=== PATIENT | male | born 1970 | race Hispanic/Latino ===

== ENCOUNTER 2018-02-15 23:42 | Emergency (ER) | payer OTHER ==
[~2018-02-15] VITALS: Ht 172.7 cm; Wt 122.5 kg
[2018-02-16] MEDS ORDERED: FAMOTIDINE 20 MG/2 ML VIAL IV STA (00:08)
[2018-02-16] MEDS ORDERED: DIPHENHYDRAMINE HCL INJ 50 MG/ML VIAL IV ONE (00:15)
[2018-02-16] MEDS ORDERED: METHYLPREDNISOLONE SOD SUCC 125 MG/2ML VIAL IV ONE (00:15)
[2018-02-16] MEDS ORDERED: DIPHENHYDRAMINE HCL INJ 50 MG/ML VIAL ONE (00:15)
[2018-02-16] MEDS ORDERED: METHYLPREDNISOLONE SOD SUCC 125 MG/2ML VIAL ONE (00:15)
[2018-02-16] MEDS ORDERED: FAMOTIDINE 20 MG/2 ML VIAL IV ONE (00:15)
[2018-02-16 00:40] VITALS: BP 141/75
== END 2018-02-16 01:35 | disposition home or self-care (01) ==
LOC: ER 23:49
DX: R60.9 Edema, unspecified (principal); T78.3XXA Angioneurotic edema, initial encounter; I10 Essential (primary) hypertension; E11.9 Type 2 diabetes mellitus without complications; E03.9 Hypothyroidism, unspecified
CPT/HCPCS: 99283; J1200; J2930

== ENCOUNTER 2018-02-25 21:12 | Emergency (ER) | payer OTHER ==
[~2018-02-25] VITALS: Ht 172.7 cm; Wt 122.5 kg
--- OUTSIDE RECORDS SUMMARY | 2018-02-25 21:14 | XMS REPORT | Continuity of Care Document ---
Author Author [facility] Organization [facility] Address [address] [place] [address] Phone Unavailable Care Team Providers Care In House Cra Name Role Phone JOAN VALDOVINOS (NONSTAFF) DO PCP Insurance Providers Guarantor SarahMary AnneEdwin Address [address] [place] [address] Email [email or web address] Payer [facility] Policy Number [id number] Subscriber's Name Edwin Boyd Relationship 18 Self / Same As Patient Group Number [id number] Advance Directives Directive Response Recorded Date/Time Does the patient have an advance directive? No 02/16/18 12:27am If yes, is advance directive on file with [facility]? No 02/16/18 12:27am If not on file with [facility] will patient provide a copy? Yes 02/16/18 12:27am Do you have a Directive to Physician? No 02/16/18 12:27am Do you have a Medical Power of Gas Usage Meter Clerk? No 02/16/18 12:27am Do you have an out of hospital Do Not Resuscitate Order? No 02/16/18 12:27am Do you have any special needs we should be aware of? No 02/16/18 12:27am Do you have a support person here with you today? Yes 02/16/18 12:27am Did patient receive Notice of Privacy Practices? Yes 02/16/18 12:27am Did patient receive patient rights and responsibilities? Yes 02/16/18 12:27am Problems No problem information available. Medications No medication information available. Social History Smoking Status Start Date Stop Date Never Smoker Hospital Discharge Instructions No hospital discharge instruction information available. Plan of Care Discharge Date 02/16/18 1:35am Disposition HOME, SELF-CARE Condition at Discharge Stable Instructions/Education Provided Angioedema Forms Provided Work/School Excuse Prescriptions See Medication Section Additional Instructions/Education STOP TAKING ENALAPRIL FOLLOW UP WITH PRIMARY CARE PHYSICIAN THIS WEEK Functional Status No functional status information available. Allergies, Adverse Reactions, Alerts Allergen Type Severity Reaction Status Last Updated Enalapril Allergy Severe Active 02/16/18 Immunizations No immunization information available. Vital Signs Acute Vital Signs Vital Response Date/Time Temperature (Fahrenheit) 97.8 degrees F (97.6 - 99.5) 02/16/2018 12:40am Pulse Pulse Rate (adult) 79 bpm (60 - 90) 02/16/2018 12:40am Respiratory Rate 17 bpm (12 - 24) 02/16/2018 12:40am Blood Pressure 141/75 mm Hg 02/16/2018 12:40am Height 5 ft 8 in 02/16/2018 12:00am Weight 270 lb 02/16/2018 12:00am Body Mass Index 41.1 kg/m^2 02/16/2018 12:00am Results No relevant diagnostic test, laboratory data and/or discharge summary information available. Procedures No procedure information available. Encounters Encounter Location Arrival/Admit Date Discharge/Depart Date Attending Provider Departed Emergency Room [facility] 02/15/18 11:49pm 02/16 1:35am LEANDRO GALVAN MD
[2018-02-25] MEDS ORDERED: ACETAMINOPHEN 325 MG TAB ONE (22:40)
[2018-02-25] MEDS ORDERED: ACETAMINOPHEN 325 MG TAB PO ONE (22:45)
[2018-02-25 23:04] LABS: STREPTOCOCCUS GRP A ANTIGEN NEGATIVE (NEGATIVE)
[2018-02-25 23:06] LABS: CLARITY,URINE CLEAR (CLEAR); COLOR,URINE YELLOW (YELLOW)
[2018-02-25 23:07] LABS: BILIRUBIN,URINE NEGATIVE (NEGATIVE); KETONES,URINE NEGATIVE (NEGATIVE); LEUKOCYTE ESTERASE ,URINE NEGATIVE (NEGATIVE); NITRITE,URINE NEGATIVE (NEGATIVE); PROTEIN,URINE DIPSTICK NEGATIVE (NEGATIVE); URINE UROBILINOGEN 0.2 mg/dL (0.2 - 1)
[2018-02-25 23:10] LABS: INFLUENZAE A&B ANTIGEN (RAPID) NEGATIVE (NEGATIVE)
--- NOTE | 2018-02-25 23:29 | Diagnostic Imaging Report ---
CHEST 2 VIEWS, Technique: CHEST 2 VIEWS Comparison: None Clinical history: Congestion DISCUSSION: Normal cardiomediastinal silhouette. No consolidation or edema. No pleural effusion or pneumothorax. IMPRESSION: No acute abnormality Signed by: Dr Eleonora De Anda MD on 02/25/2018 11:25 PM
[2018-02-25 23:31] LABS: BACTERIA,URINE RARE /HPF; EPITHELIAL CELLS,URINE RARE /LPF; RBC,URINE 0-5 /HPF (0-5); WBC,URINE (MAN) 0-5 /HPF (0-5)
[2018-02-26 00:03] VITALS: BP 142/83
== END 2018-02-26 00:36 | disposition home or self-care (01) ==
LOC: ER 21:12
DX: R50.9 Fever, unspecified (principal); R05 Cough; J20.9 Acute bronchitis, unspecified; I10 Essential (primary) hypertension; E11.9 Type 2 diabetes mellitus without complications; E78.5 Hyperlipidemia, unspecified
CPT/HCPCS: 71046; 81001; 83518; 87070; 87400; 99283

== ENCOUNTER 2019-02-14 17:34 | Observation (INO) | payer OTHER ==
[~2019-02-14] VITALS: Ht 172.7 cm; Wt 132.4 kg
--- OUTSIDE RECORDS SUMMARY | 2019-02-14 17:38 | XMS REPORT | Summary of Care ---
Author Author [facility] Address Unknown Phone Unavailable Encounter HQ Encntr_alias(FIN) [id number] Date(s): 04/02/18 - 04/03/[address], [address] [place] [address]- [phone] Vital Signs No data available for this section Problem List Condition Effective Dates Status Health Status Informant Diabetes(Confirmed) Active Hypothyroid(Confirme Resolved d) Obesity(Confirmed) Active Allergies, Adverse Reactions, Alerts Substance Reaction Severity Status NKDA Active Medications metoprolol 25 mg oral tablet, extended release 25 mg=1 tab, PO, Daily, # 90 tab, 1 Refill(s), Pharmacy: [phone] Start Date: 04/02/18 Status: Ordered Results No data available for this section Immunizations Given and Recorded Vaccine Date Status Refusal Reason influenza virus vaccine, inactivated 08/14/16 Given Procedures Procedure Date Related Diagnosis Body Site Status Knee Completed Tonsillectomy Completed Social History Social History Type Response Smoking Status Never smoker; Exposure to Tobacco Smoke None; Cigarette Smoking Last 365 Days No; Reg Smoking Cessation Counseling No entered on: 02/19/18 Assessment and Plan No data available for this section
--- OUTSIDE RECORDS SUMMARY | 2019-02-14 17:38 | XMS REPORT | Summary of Care ---
Author Author [facility] Organization [facility] Address Unknown Phone Unavailable Encounter CURRY Holland(SANDRO) [id number] Date(s): 06/19/17 - 06/19/17 [facility] [address] [employer] provided by [employer] [facility] [place] [address]- Discharge Diagnosis: Dehydration Discharge Diagnosis: Episode of syncope Discharge Disposition: Home or Self Care Attending Physician: Christin Odonnell MD Vital Signs 1 2 3 Most recent to oldest [Reference Range]: 172.72 cm (06/19/17 1:30 PM) Height 98.8 DegF (06/19/17 7:19 PM) 98.0 DegF (06/19/17 1:30 PM) Temperature Oral [96.4-99.1 DegF] 140/85 mmHg (06/19/17 7:19 PM) 147/86 mmHg *HI* (06/19/17 6:25 PM) 136/84 mmHg (06/19/17 5:12 PM) Blood Pressure [90-140/60-90 mmHg] 16 BRMIN (06/19/17 7:19 PM) 15 BRMIN (06/19/17 6:25 PM) 20 BRMIN (06/19/17 5:12 PM) Respiratory Rate [14-20 BRMIN] 79 bpm (06/19/17 1:30 PM) Peripheral Pulse Rate [60-100 bpm] 122.727 kg (06/19/17 1:30 PM) Weight 41.14 m2 (06/19/17 1:30 PM) Body Mass Index Problem List Condition Effective Dates Status Health Status Informant Diabetes(Confirmed) Active Hypothyroid(Confirme Resolved d) Obesity(Confirmed) Active Allergies, Adverse Reactions, Alerts Substance Reaction Severity Status NKDA Active Medications NS (Bolus) IV 1,000 mL, 1,000 ml/hr, Infuse Over: 1 hr, Route: IV, 1,000, Drug form: INJ, ONCE , Priority: STAT, Dosing Weight 122.727 kg, Start date: 06/19/17 13:58:00 CDT, D uration: 1 doses or times, Stop date: 06/19/17 13:58:00 CDT Start Date: 06/19/17 Stop Date: 06/19/17 Status: Completed Sodium Chloride 0.9% (Bolus) IV 1,000 mL, 1,000 ml/hr, Infuse Over: 1 hr, Route: IV, 1,000, Drug form: INJ, ONCE , Priority: STAT, Dosing Weight 122.727 kg, Start date: 06/19/17 16:22:00 CDT, D uration: 1 doses or times, Stop date: 06/19/17 16:22:00 CDT Start Date: 06/19/17 Stop Date: 06/19/17 Status: Completed Results ELECTROLYTES Most recent to 1 oldest [Reference Range]: Sodium Lvl [135-145 135 mEq/L mEq/L] (06/19/17 2:06 PM) Potassium Lvl 3.9 mEq/L [3.5-5.1 mEq/L] (06/19/17 2:06 PM) Chloride Lvl [95-109 101 mEq/L mEq/L] (06/19/17 2:06 PM) CO2 [24-32 mEq/L] 23 mEq/L *LOW* (06/19/17 2:06 PM) AGAP [10.0-20.0 14.9 mEq/L mEq/L] (06/19/17 2:06 PM) CHEM PANEL Most recent to 1 oldest [Reference Range]: Creatinine Lvl 1.13 mg/dL [0.50-1.40 mg/dL] (06/19/17 2:06 PM) eGFR 76 mL/min/1.73m2 1 *NA* (06/19/17 2:06 PM) BUN [7-22 mg/dL] 14 mg/dL (06/19/17 2:06 PM) Glucose Lvl [70-99 156 mg/dL mg/dL] *HI* (06/19/17 2:06 PM) Calcium Lvl 8.8 mg/dL [8.5-10.5 mg/dL] (06/19/17 2:06 PM) 1Result Comment: The eGFR is calculated using the CKD-EPI formula. In most young, healthy individuals the eGFR will be >90 mL/min/1.73m2. The eGFR declines with age. An eGFR of 60-89 may be normal in some populations, particularly the elderly, for whom the CKD-EPI formula has not been extensively validated. Use of the eGFR is not recommended in the following populations: Individuals with unstable creatinine concentrations, including patients and those with serious co-morbid conditions. Patients with extremes in muscle mass or diet. The data above are obtained from the National Kidney Disease Education Program ( NKDEP) which additionally recommends that when the eGFR is used in patients with extremes of body mass index for purposes of drug dosing, the eGFR should be mul tiplied by the estimated BMI. HEMATOLOGY Most recent to 1 oldest [Reference Range]: WBC [3.7-10.4 K/CMM] 5.6 K/CMM (06/19/17 2:06 PM) RBC [4.70-6.10 4.75 M/CMM M/CMM] (06/19/17 2:06 PM) Hgb [14.0-18.0 g/dL] 14.5 g/dL (06/19/17 2:06 PM) Hct [42.0-54.0 %] 42.9 % (06/19/17 2:06 PM) MCV [80.0-94.0 fL] 90.2 fL (06/19/17 2:06 PM) MCH [27.0-31.0 pg] 30.5 pg (06/19/17 2:06 PM) MCHC [32.0-36.0 33.8 g/dL g/dL] (06/19/17 2:06 PM) RDW [11.5-14.5 %] 13.8 % (06/19/17 2:06 PM) Platelet [133-450 224 K/CMM K/CMM] (06/19/17 2:06 PM) MPV [7.4-10.4 fL] 9.2 fL (06/19/17 2:06 PM) Segs [45.0-75.0 %] 62.0 % (06/19/17 2:06 PM) Lymphocytes 25.6 % [20.0-40.0 %] (06/19/17 2:06 PM) Monocytes [2.0-12.0 8.5 % %] (06/19/17 2:06 PM) Eosinophils [0.0-4.0 3.2 % %] (06/19/17 2:06 PM) Basophils [0.0-1.0 0.7 % %] (06/19/17 2:06 PM) Segs-Bands # 3.5 K/CMM [1.5-8.1 K/CMM] (06/19/17 2:06 PM) Lymphocytes # 1.4 K/CMM [1.0-5.5 K/CMM] (06/19/17 2:06 PM) Monocytes # [0.0-0.8 0.5 K/CMM K/CMM] (06/19/17 2:06 PM) Eosinophils # 0.2 K/CMM [0.0-0.5 K/CMM] (06/19/17 2:06 PM) Immunizations Given and Recorded Vaccine Date Status Refusal Reason influenza virus vaccine, inactivated 08/14/16 Given Procedures Procedure Date Related Diagnosis Body Site Knee Tonsillectomy Social History Social History Type Response Smoking Status Never smoker; Ready to change: No; Concerns about tobacco use in household: No; Exposure to Tobacco Smoke None; Cigarette Smoking Last 365 Days No; Reg Smoking Cessation Counseling No Assessment and Plan No data available for this section
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
--- OUTSIDE RECORDS SUMMARY | 2019-02-14 17:38 | XMS REPORT | Summary of Care ---
Author Author [facility] Address Unknown Phone Unavailable Encounter HQ Encntr_alias(FIN) [id number] Date(s): 10/07/17 - 10/08/17 [facility] [address] [place] [address] [phone] Vital Signs No data available for this section Problem List Condition Effective Dates Status Health Status Informant Diabetes(Confirmed) Active Hypothyroid(Confirme Resolved d) Obesity(Confirmed) Active Allergies, Adverse Reactions, Alerts Substance Reaction Severity Status NKDA Active Medications enalapril 5 mg oral tablet 5 mg=1 tab, PO, Daily, # 90 tab, 0 Refill(s), Pharmacy: [facility] Start Date: 10/08/17 Status: Ordered Results No data available for [...]
--- OUTSIDE RECORDS SUMMARY | 2019-02-14 17:38 | XMS REPORT | Summary of Care ---
Author Author [facility] Address Unknown Phone Unavailable Encounter HQ Encntr_alias(FIN) [id number] Date(s): 10/07/17 - 10/08/17 [facility] [address] [place] [phone] Vital Signs No data available for this section Problem List Condition Effective Dates Status Health Status Informant Diabetes(Confirmed) Active Hypothyroid(Confirme Resolved d) Obesity(Confirmed) Active Allergies, Adverse Reactions, Alerts Substance Reaction Severity Status NKDA Active Medications No data available for this section Results No data available for this section [...]
--- OUTSIDE RECORDS SUMMARY | 2019-02-14 17:38 | XMS REPORT | Summary of Care ---
Author Author [facility] Organization [facility] Address Unknown Phone Unavailable Encounter HQ Amalia(FIN) [id number] Date(s): 04/28/18 - 04/28/[address] [place] [address]- [phone] Discharge Disposition: Home or Self Care Attending Physician: Bernardo Jimenez DO Vital Signs Most recent to 1 oldest [Reference Range]: Height 172.72 cm (04/28/18 4:22 PM) Temperature Oral 98.5 DegF [96.4-99.1 DegF] (04/28/18 4:22 PM) Blood Pressure 149/97 mmHg [90-140/60-90 mmHg] *HI* (04/28/18 4:22 PM) Peripheral Pulse 105 bpm Rate [60-100 bpm] *HI* (04/28/18 4:22 PM) Weight 112.273 kg (04/28/18 4:22 PM) Body Mass Index 37.63 m2 (04/28/18 4:22 PM) Problem List Condition Effective Dates Status Health Status Informant Diabetes(Confirmed) Active Hypothyroid(Confirme Resolved d) Obesity(Confirmed) Active Allergies, Adverse Reactions, Alerts Substance Reaction Severity Status NKDA Active Medications Farxiga 10 mg oral tablet 10 mg=1 tab, PO, Daily, # 30 tab, 0 Refill(s), Pharmacy: [facility] [place] [facility] 9 Start Date: 04/30/18 Status: Ordered metFORMIN 1000 mg oral tablet, extended release 1,000 mg=1 tab, PO, BID, # 60 tab, 0 Refill(s), Pharmacy: [facility] [place] [facility] Start Date: 04/30/18 Status: Ordered nystatin-triamcinolone topical cream 1 appl, TOP, BID, X 14 day, # 15 gm, 1 Refill(s), Pharmacy: [facility] [place] [facility] Start Date: 04/28/18 Stop Date: 05/26/18 Status: Ordered pioglitazone 30 mg oral tablet 30 mg=1 tab, PO, Daily, # 30 tab, 0 Refill(s), Pharmacy: [facility] [place] [facility] 9 Start Date: 04/30/18 Status: Ordered Results No data available for [...] Reg Smoking Cessation Counseling No entered on: 04/28/18 Assessment and Plan No data available for this section
--- OUTSIDE RECORDS SUMMARY | 2019-02-14 17:38 | XMS REPORT | Summary of Care ---
Author Author [facility] Address Unknown Phone Unavailable Encounter HQ Encntr_jose(FIN) [id number] Date(s): 02/19/18 - 02/19/[address], [address] [place] [address]- [phone] Discharge Disposition: Home or Self Care Attending Physician: Bernardo Jimenez DO Vital Signs Most recent to 1 oldest [Reference Range]: Height 165.1 cm (02/19/18 10:24 AM) Temperature Oral 98.2 DegF [96.4-99.1 DegF] (02/19/18 10:24 AM) Blood Pressure 136/86 mmHg [90-140/60-90 mmHg] (02/19/18 10:24 AM) Peripheral Pulse 75 bpm Rate [60-100 bpm] (02/19/18 10:24 AM) Weight 126 kg (02/19/18 10:24 AM) Body Mass Index 46.22 m2 (02/19/18 10:24 AM) Problem List Condition Effective Dates Status Health Status Informant Diabetes(Confirmed) Active Hypothyroid(Confirme Resolved d) Obesity(Confirmed) Active Allergies, Adverse Reactions, Alerts Substance Reaction Severity Status NKDA Active Medications metoprolol 25 mg oral tablet, extended release 25 mg=1 tab, PO, Daily, # 90 tab, 0 Refill(s) Start Date: 02/19/18 Status: Ordered Results No data available for [...]
--- OUTSIDE RECORDS SUMMARY | 2019-02-14 17:39 | XMS REPORT | Summary of Care ---
Author Author [facility] Address Unknown Phone Unavailable Encounter HQ Encntr_alias(FIN) [id number] Date(s): 01/20/19 - 01/21/[address], [address] [place] [address]- [phone] Vital Signs No data available for this section Problem List Condition Effective Dates Status Health Status Informant Diabetes(Confirmed) Active Hypothyroid(Confirme Resolved d) Obesity(Confirmed) Active Allergies, Adverse Reactions, Alerts Substance Reaction Severity Status NKDA Active Medications pioglitazone 30 mg oral tablet =1 tab, PO, Daily, # 30 ea, Pharmacy: [facility] [place] [address]49 Start Date: 01/20/19 Status: Ordered Results No data available for [...] Reg Smoking Cessation Counseling No entered on: 06/11/18 Assessment and Plan No data available for this section
--- OUTSIDE RECORDS SUMMARY | 2019-02-14 17:39 | XMS REPORT | Summary of Care ---
Author Author [facility] Address Unknown Phone Unavailable Encounter HQ Encntr_alias(FIN) [id number] Date(s): 06/04/18 - 06/04/[address], [address] [place] [address]- [phone] Attending Physician: Bernardo Jimenez DO Vital Signs No data available for this [...]
--- OUTSIDE RECORDS SUMMARY | 2019-02-14 17:39 | XMS REPORT | Summary of Care ---
Author Author [facility] Address Unknown Phone Unavailable Encounter HQ Encntr_alias(FIN) [id number] Date(s): 05/30/18 - 05/31/18 [place] [id number] [facility], [address] [place] [address]- [phone] Vital Signs No data available for this section Problem List Condition Effective Dates Status Health Status Informant Diabetes(Confirmed) Active Hypothyroid(Confirme Resolved d) Obesity(Confirmed) Active Allergies, Adverse Reactions, Alerts Substance Reaction Severity Status NKDA Active Medications pioglitazone 30 mg oral tablet 30 mg=1 tab, PO, Daily, # 90 tab, 0 Refill(s), Pharmacy: [facility] [place] [facility]4 9 Start Date: 05/30/18 Status: Ordered Results No data available for [...]
--- OUTSIDE RECORDS SUMMARY | 2019-02-14 17:39 | XMS REPORT | Summary of Care ---
Author Organization Unknown Address Unknown Phone Unavailable Encounter HQ Amalia(SANDRO) [id number] Date(s): 01/24/15 - 01/24/15 [facility] [address] [employer] provided by [facility] [place] [address]- Discharge Diagnosis: Ankle fracture Discharge Disposition: Home Physician Attending: Hossein Valera MD Vital Signs Most recent to 1 2 oldest [Reference Range]: Height 172.72 cm (01/24/15 12:30 PM) Temperature Oral 98.1 DegF 98.0 DegF [96.4-99.1 DegF] (01/24/15 6:10 PM) (01/24/15 12:30 PM) Blood Pressure 158/76 mmHg 156/97 mmHg [90-140/60-90 mmHg] *HI* *HI* (01/24/15 6:10 PM) (01/24/15 12:30 PM) Respiratory Rate 16 BRMIN 16 BRMIN [14-20 BRMIN] (01/24/15 6:10 PM) (01/24/15 12:30 PM) Peripheral Pulse 83 bpm 87 bpm Rate [60-100 bpm] (01/24/15 6:10 PM) (01/24/15 12:30 PM) Weight 122.727 kg (01/24/15 12:30 PM) Body Mass Index 41.14 m2 (01/24/15 12:30 PM) Problem List Condition Effective Dates Status Health Status Informant Hypothyroid(Confirme Resolved d) Allergies, Adverse Reactions, Alerts Substance Reaction Severity Status NKDA Active Medications acetaminophen-hydrocodone 325 mg-5 mg oral tablet 1 tab, Route: PO, Drug Form: TAB, Dosing Weight 122.727, kg, ONCE, STAT, Start d ate: 01/24/15 12:48:00, Stop date: 01/24/15 12:48:00 Notes: (Same as: [place] 325/5) Do not exceed 4gm/day of acetaminophen. Start Date: 01/24/15 Stop Date: 01/24/15 Status: Completed tramadol 50 mg oral tablet 50 mg=1 tab, PO, Q4H, # 20 tab, 0 Refill(s) Start Date: 01/24/15 Status: Ordered Results No data available for this section Immunizations No data available for this section Procedures No data available for this section Social History Social History Type Response Smoking Status Never smoker; Exposure to Tobacco Smoke None; Cigarette Smoking Last 365 Days No; Reg Smoking Cessation Counseling No Assessment and Plan No data available for this section
--- OUTSIDE RECORDS SUMMARY | 2019-02-14 17:39 | XMS REPORT ---
Author Author Bela Jennings Organization [employer] Address Unknown Phone Unavailable Care Team Providers Care Linux Network Engineer Name Role Phone Bela Jennings Unavailable Allergies, Adverse Reactions, Alerts Substance Reaction Event Type N.K.D.A. Info Not Available Non Drug Allergy Problems Problem Type Condition Code Onset Dates Condition Status Assessment Controlled type 2 diabetes mellitus without complication, without long- term current use of insulin E11.9 Active Assessment Annual physical exam Z00.00 Active Assessment Vitamin D deficiency E55.9 Active Problem Vitamin D deficiency E55.9 Active Problem Obesity, morbid, BMI 40.0-49.9 E66.01 Active Problem BMI 40.0-44.9, adult Z68.41 Active Problem Controlled type 2 diabetes mellitus without complication, without long- term current use of insulin E11.9 Active Problem Mixed hyperlipidemia E78.2 Active Problem Essential hypertension I10 Active Assessment BMI 40.0-44.9, adult Z68.41 Active Assessment Colon cancer screening Z12.11 Active Assessment Essential hypertension I10 Active Assessment Obesity, morbid, BMI 40.0-49.9 E66.01 Active Assessment Mixed hyperlipidemia E78.2 Active Medications Medication Code System Code Instructions Start Date End Date Status Dosage Metoprolol Tartrate [facility] 25121505173 25 MG Orally Twice a day Active 1 tablet with food MetFORMIN HCl ER [facility] 84554270100 750 MG Orally Once a day Active 1 tablet with evening meal Simvastatin ND 43561389611 20 MG Orally Once a day Active 1 tablet in the evening Pioglitazone HCl [facility] 55136647160 30 MG Orally Once a day Active 1 tablet Vital Signs Date/Time: Dec 01, 2018 BMI 42.44 Index Weight 287.4 lbs Height 69 in Temperature 97.5 F Cardiac Monitoring Heart Rate 94 /min Blood Pressure Diastolic 86 mm Hg Blood Pressure Systolic 141 mm Hg Results No Known Results Summary Purpose [employer] Submission
--- OUTSIDE RECORDS SUMMARY | 2019-02-14 17:39 | XMS REPORT ---
Author Author Bela Jennings [facility] [employer] Address Unknown Phone Unavailable Care Team Providers Care Gi Asst Name Role Phone Bela Jennings Unavailable Allergies, Adverse Reactions, Alerts Substance Reaction Event Type N.K.D.A. Info Not Available Non Drug Allergy Problems Problem Type Condition Code Onset Dates Condition Status Problem Essential hypertension I10 Active Problem Vitamin D deficiency E55.9 Active Problem Obesity, morbid, BMI 40.0-49.9 E66.01 Active Problem Environmental allergies Z91.09 Active Assessment Obesity, morbid, BMI 40.0-49.9 E66.01 Active Problem Other fatigue R53.83 Active Assessment ARLENE (obstructive sleep apnea) G47.33 Active Problem ARLENE (obstructive sleep apnea) G47.33 Active Problem Controlled type 2 diabetes mellitus without complication, without long- term current use of insulin E11.9 Active Problem BMI 40.0-44.9, adult Z68.41 Active Problem Skin tag L91.8 Active Problem Acquired hypothyroidism E03.9 Active Assessment Essential hypertension I10 Active Assessment Environmental allergies Z91.09 Active Assessment BMI 40.0-44.9, adult Z68.41 Active Assessment Acquired hypothyroidism E03.9 Active Assessment Controlled type 2 diabetes mellitus without complication, without long- term current use of insulin E11.9 Active Assessment Other fatigue R53.83 Active Assessment Mixed hyperlipidemia E78.2 Active Assessment Vitamin D deficiency E55.9 Active Problem Mixed hyperlipidemia E78.2 Active Medications Medication Code System Code Instructions Start Date End Date Status Dosage Levothyroxine Sodium [facility] 94549295667 88 MCG Orally Once a day Active 1 tablet Simvastatin ND 56820091040 40 MG Orally Once a day Active 1 tablet in the evening Levocetirizine Dihydrochloride ND 66710195880 5 MG Orally Once a day Dec 30, 2018 January 29, 2019 Active 1 tablet in the evening Fluticasone Propionate ND 24699810103 50 MCG/ACT Nasally Once a day Dec 30, 2018 Active 1 spray in each nostril Ergocalciferol [facility] 48435393207 07712 UNIT Orally once a week Active 1 capsule Jardiance [facility] 23032880652 25 MG Orally Once a day Active 1 tablet Olmesartan Medoxomil [facility] 25970612163 20 mg Orally Once a day Active 1 tablet MetFORMIN HCl ER [facility] 97746506262 500 mg Orally twice a day (bid) Active 2 tablets Vital Signs Date/Time: Dec 30, 2018 BMI 43.37 Index Weight 293.7 lbs Height 69 in Temperature 98.4 F Cardiac Monitoring Heart Rate 88 /min Blood Pressure Diastolic 79 mm Hg Blood Pressure Systolic 125 mm Hg Results No Known Results Summary Purpose [employer] Submission
--- OUTSIDE RECORDS SUMMARY | 2019-02-14 17:39 | XMS REPORT ---
Author Author [facility] Address Unknown Phone Unavailable Care Team Providers Care Stock Counter Name Role Phone Mary GALVAN Unavailable Unavailable Problems This patient has no known problems. Allergies, Adverse Reactions, Alerts This patient has no known allergies or adverse reactions. Medications This patient has no known medications. Results Test Description Test Time Test Comments Text Results Atomic Results Result Comments CHEST 2 VIEWS [place] [address] Patient Name: HARRISON BOYD MR #: [id number] : 1970 Age/Sex: 47/M Req #: [id number] Adm Physician: Ordered by: ELANDRO GALVAN MD Report #: [id number] Location: ER Room/Bed: Procedure: [id number] DX/CHEST 2 VIEWS Exam Date: 02/25/18 Exam Time: 2300 REPORT STATUS: Signed CHEST 2 VIEWS, Technique: CHEST 2 VIEWS Comparison: None Clinical history: Congestion DISCUSSION: Normal cardiomediastinal silhouette. No consolidation or edema. No pleural effusion or pneumothorax. IMPRESSION: No acute abnormality Signed by: Dr Clara De Anda MD on 02/25/2018 11:25 PM Dictated By: CLARA DE ANDA MD 24 Transcribed By: TAHMINA on 02/25/187 COPY TO: LEANDRO GALVAN MD
--- OUTSIDE RECORDS SUMMARY | 2019-02-14 17:39 | XMS REPORT | Summary of Care ---
Author Author [facility] Address Unknown Phone Unavailable Encounter HQ Encntr_alias(FIN) [id number] Date(s): 12/11/18 - 12/12/[address], [address] [place] [address]- [phone] Vital Signs No data available for this [...]
--- OUTSIDE RECORDS SUMMARY | 2019-02-14 17:39 | XMS REPORT | Summary of Care ---
Author Author [facility] Address Unknown Phone Unavailable Encounter HQ Encntr_alias(FIN) [id number] Date(s): 05/30/18 - 05/31/18 [place] [address] [facility], [address] [place] [address]- [phone] Vital Signs No data available for this section Problem List Condition Effective Dates Status Health Status Informant Diabetes(Confirmed) Active Hypothyroid(Confirme Resolved d) Obesity(Confirmed) Active Allergies, Adverse Reactions, Alerts Substance Reaction Severity Status NKDA Active Medications pioglitazone 30 mg oral tablet 30 mg=1 tab, PO, Daily, # 90 tab, 0 Refill(s), Pharmacy: [facility] [place] #4 9 Start Date: 05/30/18 Stop Date: 09/06/18 Status: Completed Results No data available for this section [...]
--- OUTSIDE RECORDS SUMMARY | 2019-02-14 17:39 | XMS REPORT | Summary of Care ---
Author Author [facility] Organization [facility] Address Unknown Phone Unavailable Encounter HQ Amalia(FIN) [id number] Date(s): 01/29/18 - 01/29/[address], [address] [place] [address]- [phone] Discharge Disposition: Home or Self Care Attending Physician: Bernardo Jimenez DO Vital Signs Most recent to 1 oldest [Reference Range]: Height 172.72 cm (01/29/18 4:31 PM) Temperature Oral 98.6 DegF [96.4-99.1 DegF] (01/29/18 4:31 PM) Blood Pressure 145/89 mmHg [90-140/60-90 mmHg] *HI* (01/29/18 4:31 PM) Peripheral Pulse 87 bpm Rate [60-100 bpm] (01/29/18 4:31 PM) Weight 129.148 kg (01/29/18 4:31 PM) Body Mass Index 43.29 m2 (01/29/18 4:31 PM) Problem List Condition Effective Dates Status Health Status Informant Diabetes(Confirmed) Active Hypothyroid(Confirme Resolved d) Obesity(Confirmed) Active Allergies, Adverse Reactions, Alerts Substance Reaction Severity Status NKDA Active Medications mupirocin topical 2% cream 1 appl, TOP, TID, X 5 day, # 30 gm, 0 Refill(s), Pharmacy: [facility] Start Date: 01/29/18 Stop Date: 02/03/18 Status: Completed TamiFLU 75 mg oral capsule 75 mg, PO, Q12H, X 5 day, # 10 cap, 0 Refill(s), Pharmacy: [facility] Start Date: 01/29/18 Stop Date: 02/03/18 Status: Completed Results No data available for [...]
--- OUTSIDE RECORDS SUMMARY | 2019-02-14 17:39 | XMS REPORT | Summary of Care ---
Author Author [facility] Address Unknown Phone Unavailable Encounter HQ Encntr_alias(FIN) [id number] Date(s): 01/20/19 - 01/21/[address], [address] [place] [address]- [phone] Vital Signs No data available for this [...]
--- OUTSIDE RECORDS SUMMARY | 2019-02-14 17:39 | XMS REPORT | Summary of Care ---
Author Organization Unknown Address Unknown Phone Unavailable Encounter HQ Encntr_alias(FIN) [id number] Date(s): 04/12/15 - 05/11/15 [facility] Discharge Disposition: Home Physician Attending: James Rea MD Vital Signs No data available for this [...]
--- OUTSIDE RECORDS SUMMARY | 2019-02-14 17:39 | XMS REPORT | Summary of Care ---
Author Author [facility] Address Unknown Phone Unavailable Encounter HQ Encntr_alias(FIN) [id number] Date(s): 12/11/18 - 12/12/18 [place] [address] [facility], [address] [place] [address]- [phone] Vital Signs No data available for this section Problem List Condition Effective Dates Status Health Status Informant Diabetes(Confirmed) Active Hypothyroid(Confirme Resolved d) Obesity(Confirmed) Active Allergies, Adverse Reactions, Alerts Substance Reaction Severity Status NKDA Active Medications metFORMIN 750 mg oral tablet, extended release =1 tab, PO, BID-Meals, Needs office follow-up for exam and labs, # 60 ea, 1 Refi ll(s), Pharmacy: [facility] Pharm[facility] [place] [address]49 Start Date: 12/11/18 Status: Ordered Results No data available for [...]
--- OUTSIDE RECORDS SUMMARY | 2019-02-14 17:39 | XMS REPORT | Summary of Care ---
Author Author [facility] Address Unknown Phone Unavailable Encounter HQ Encntr_alias(FIN) [id number] Date(s): 05/09/18 - 05/10/[address], [address] [place] [address]- [phone] Vital Signs No data available for this [...]
--- OUTSIDE RECORDS SUMMARY | 2019-02-14 17:39 | XMS REPORT ---
Author Author Bela Jennings [facility] eClinicalWorks Address Unknown Phone Unavailable Care Team Providers Care Exhibition Carver Name Role Phone Bela Jennings Unavailable Allergies, Adverse Reactions, Alerts Substance Reaction Event Type N.K.D.A. Info Not Available Non Drug Allergy Problems Problem Type Condition Code Onset Dates Condition Status Problem Essential hypertension I10 Active Problem Vitamin D deficiency E55.9 Active Problem Obesity, morbid, BMI 40.0-49.9 E66.01 Active Problem Environmental allergies Z91.09 Active Assessment ARLENE (obstructive sleep apnea) G47.33 Active Problem Other fatigue R53.83 Active Assessment BMI 40.0-44.9, adult Z68.41 Active Assessment Obesity, morbid, BMI 40.0-49.9 E66.01 Active Problem ARLENE (obstructive sleep apnea) G47.33 Active Problem Controlled type 2 diabetes mellitus without complication, without long- term current use of insulin E11.9 Active Problem BMI 40.0-44.9, adult Z68.41 Active Problem Skin tag L91.8 Active Problem Acquired hypothyroidism E03.9 Active Assessment Mixed hyperlipidemia E78.2 Active Assessment Vitamin D deficiency E55.9 Active Assessment Acquired hypothyroidism E03.9 Active Assessment Essential hypertension I10 Active Assessment Acute viral conjunctivitis of both eyes B30.9 Active Assessment Environmental allergies Z91.09 Active Assessment Controlled type 2 diabetes mellitus without complication, without long- term current use of insulin E11.9 Active Assessment Other fatigue R53.83 Active Problem Mixed hyperlipidemia E78.2 Active Medications Medication Code System Code Instructions Start Date End Date Status Dosage MetFORMIN HCl ER ND 18576198108 500 mg Orally twice a day (bid) Active 2 tablets Simvastatin ND 58779227944 40 MG Orally Once a day Active 1 tablet in the evening Montelukast Sodium ND 19875580620 10 mg Orally once every night February 03, 2019 Active 1 tablet Fluticasone Propionate ND 02381766957 50 MCG/ACT Nasally Once a day Active 1 spray in each nostril Olmesartan Medoxomil ND 97475330297 20 mg Orally Once a day Active 1 tablet Jardiance [facility] 55819488895 25 MG Orally Once a day Active 1 tablet Levothyroxine Sodium [facility] 80841324115 88 MCG Orally Once a day Active 1 tablet Olopatadine HCl [facility] 85179759717 0.1 % Ophthalmic Twice a day February 03, 2019 Active 1 drop into affected eye Levocetirizine Dihydrochloride [facility] 54127910420 5 MG Orally Once a day March 05, 2019 Active 1 tablet in the evening Ergocalciferol [facility] 37107871745 31479 UNIT Orally once a week Active 1 capsule Vital Signs Date/Time: February 03, 2019 BMI 43.06 Index Weight 291.6 lbs Height 69 in Temperature 97.9 F Cardiac Monitoring Heart Rate 72 /min Blood Pressure Diastolic 85 mm Hg Blood Pressure Systolic 125 mm Hg Results No Known Results Summary Purpose eClinicalWorks Submission
--- OUTSIDE RECORDS SUMMARY | 2019-02-14 17:39 | XMS REPORT | Summary of Care ---
Author Author [facility] Address Unknown Phone Unavailable Encounter HQ Julianantr_jose(FIN) [id number] Date(s): 06/11/18 - 06/11/[address], [address] [place] [address]- [phone] Discharge Disposition: Home or Self Care Attending Physician: Bernardo Jimenez DO Vital Signs Most recent to 1 oldest [Reference Range]: Height 172.72 cm (06/11/18 10:17 AM) Temperature Oral 97.9 DegF [96.4-99.1 DegF] (06/11/18 10:17 AM) Blood Pressure 130/79 mmHg [90-140/60-90 mmHg] (06/11/18 10:17 AM) Peripheral Pulse 67 bpm Rate [60-100 bpm] (06/11/18 10:17 AM) Weight 114.091 kg (06/11/18 10:17 AM) Body Mass Index 38.24 m2 (06/11/18 10:17 AM) Problem List Condition Effective Dates Status Health Status Informant Diabetes(Confirmed) Active Hypothyroid(Confirme Resolved d) Obesity(Confirmed) Active Allergies, Adverse Reactions, Alerts Substance Reaction Severity Status NKDA Active Medications metoprolol 25 mg oral tablet, extended release 25 mg=1 tab, PO, Daily, # 90 tab, 1 Refill(s), Pharmacy: [phone] Start Date: 10/01/18 Status: Ordered metoprolol 25 mg oral tablet, extended release 25 mg=1 tab, PO, Daily, # 90 tab, 1 Refill(s), Pharmacy: [phone] Start Date: 09/22/18 Stop Date: 10/01/18 Status: Completed Results No data available for [...]
[2019-02-14] MEDS ORDERED: ASPIRIN 81 MG CHEW TAB PO ONE ×2 (18:15→19:45)
[2019-02-14 18:20] LABS: BASOPHILS # (AUTO) 0.1 (0.0-0.1); BASOPHILS % 0.6 % (0.0-1.0); EOSINOPHILS # (AUTO) 0.3 (0.0-0.4); EOSINOPHILS % 3.2 % (0.0-6.0); HEMATOCRIT 47.5 % (38.2-49.6); LYMPHOCYTES # (AUTO) 2.6 (1.0-3.2); LYMPHOCYTES % 33.8 % (18.0-39.1); MEAN CORPUSCULAR HEMOGLOBIN 30.8 pg (28-32); MEAN CORPUSCULAR HGB CONC 33.7 g/dL (31-35); MEAN CORPUSCULAR VOLUME 91.3 fL (81-99); MONOCYTES # (AUTO) 0.9 (0.2-0.8); MONOCYTES % 11.4 % (4.4-11.3); NEUTROPHILS # (AUTO) 3.9 (2.1-6.9); NEUTROPHILS % 50.2 % (38.7-80.0); PLATELET COUNT 282 x10e3/uL (140-360); RED CELL DISTRIBUTION WIDTH 13.4 % (11.7-14.4)
[2019-02-14 18:28] LABS: INR 0.9; PROTHROMBIN TIME 12.6 seconds (11.9-14.5)
[2019-02-14 18:29] LABS: PARTIAL THROMBOPLASTIN TIME 32.3 seconds (23.8-35.5)
[2019-02-14 18:39] LABS: ALANINE AMINOTRANSFERASE 68 IU/L (0-55); ALBUMIN 4.1 g/dL (3.5-5.0); ALKALINE PHOSPHATASE 82 IU/L (40-150); ANION GAP 14.8 mmol/L (8-16); BLOOD UREA NITROGEN 15 mg/dL (7-26); BUN/CREATININE RATIO 13 (6-25); CALCIUM 9.7 mg/dL (8.4-10.2); CARBON DIOXIDE 22 mmol/L (22-29); CHLORIDE 105 mmol/L (98-107); CREATINE KINASE 206 IU/L (30-200); CREATININE, SERUM 1.16 mg/dL (0.72-1.25); EST GLOMERULAR FILTRATION RATE > 60 ML/MIN (60-); GLUCOSE 92 mg/dL (74-118); POTASSIUM 3.8 mmol/L (3.5-5.1); SODIUM 138 mmol/L (136-145)
[2019-02-14 18:42] LABS: BILIRUBIN,URINE NEGATIVE (NEGATIVE); CLARITY,URINE CLEAR (CLEAR); COLOR,URINE YELLOW (YELLOW); KETONES,URINE NEGATIVE (NEGATIVE); LEUKOCYTE ESTERASE ,URINE NEGATIVE (NEGATIVE); NITRITE,URINE NEGATIVE (NEGATIVE); PROTEIN,URINE DIPSTICK NEGATIVE (NEGATIVE); URINE UROBILINOGEN 0.2 mg/dL (0.2 - 1)
--- NOTE | 2019-02-14 19:00 | NUR ---
Received patient from day nurse, patient is stable.
[2019-02-14 19:05] LABS: EPITHELIAL CELLS,URINE MODERATE /LPF; WBC,URINE (MAN) 0-5 /HPF (0-5)
--- NOTE | 2019-02-14 19:18 | Diagnostic Imaging Report ---
Examination: Single AP view of the chest. COMPARISON: None. INDICATION: Chest pain DISCUSSION: Lines/tubes: None. Lungs: The lungs are well inflated and clear. No pneumonia or pulmonary edema. Pleura: No pleural effusion or pneumothorax. Heart and mediastinum: The heart and the mediastinum are unremarkable. Bones and soft tissues: No acute bony abnormalities. IMPRESSION: 1. No acute cardiopulmonary abnormalities. Signed by: Dr. Luís Lee M.D. on 02/14/2019 7:15 PM
[2019-02-14] MEDS ORDERED: DEXTROSE 50% SYRINGE 50 ML IV PRN (19:30)
[2019-02-14] MEDS ORDERED: ONDANSETRON HCL INJ 2MG/ML 2ML 2 MG/ML VIAL IV PRN (19:30)
[2019-02-14] MEDS ORDERED: METOPROLOL SUCC25 MG PO (19:32)
[2019-02-14] MEDS ORDERED: LEVOCETIRIZINE D5 MG PO (19:32)
[2019-02-14] MEDS ORDERED: LEVOTHYROXINE88 MCG PO (19:32)
[2019-02-14] MEDS ORDERED: SIMVASTATIN20 MG PO (19:32)
[2019-02-14] MEDS ORDERED: MONTELUKAST SOD10 MG PO (19:32)
[2019-02-14] MEDS ORDERED: METFORMIN HCL750 MG PO (19:32)
[2019-02-14] MEDS ORDERED: PIOGLITAZONE HC30 MG PO (19:32)
[2019-02-14] MEDS ORDERED: JARDIANCE PO (19:32)
[2019-02-14] MEDS ORDERED: BENICAR20 MG PO (19:32)
[2019-02-14] MEDS ORDERED: FLUTICASONE PRO16 GM (19:32)
[2019-02-14] MEDS ORDERED: MORPHINE SULFATE INJ 4 MG/ML INJ 1ML IV PRN (20:00)
--- NOTE | 2019-02-14 20:18 | NUR ---
AWAKE ALERT SKIN W/D RESP NONLAB. NAD NOTED. REPORT CALLED TO FLOOR.
[2019-02-14 20:45] VITALS: BP 154/79
[2019-02-14 21:00] VITALS: BP 154/79
[2019-02-14] MEDS: INSULIN REGULAR, HUMAN 100 UNIT/1 ML 3ML VIAL SQ SCH (21:00)
[2019-02-14] MEDS: FAMOTIDINE 20 MG/2 ML VIAL IV SCH (21:43)
[2019-02-15] VITALS (7 sets, daily range): BP systolic 109–167; BP diastolic 58–72
[2019-02-15] MEDS: NITROGLYCERIN 2% OINT 1 GM PKT TOP SCH ×2 (00:45→06:39)
[2019-02-15] MEDS: LEVOTHYROXINE SODIUM 88 MCG TAB PO SCH (06:39)
--- NOTE | 2019-02-15 07:10 | NUR ---
patient endorsed to next shift for continuity of care.
[2019-02-15] MEDS: INSULIN REGULAR, HUMAN 100 UNIT/1 ML 3ML VIAL SQ SCH ×4 (07:30→20:48)
[2019-02-15 07:59] LABS: CHOL/HDL RATIO 3.6 (3.9-4.7)
[2019-02-15] MEDS: LORATADINE 10 MG TAB PO SCH (08:45)
[2019-02-15] MEDS: FLUTICASONE PROPIONATE NASAL SPRAY NS SCH (08:45)
[2019-02-15] MEDS: FAMOTIDINE 20 MG/2 ML VIAL IV SCH (08:45)
[2019-02-15] MEDS: ASPIRIN 81 MG ENTERIC COATED PO SCH (08:45)
[2019-02-15] MEDS: SIMVASTATIN 20 MG TAB PO SCH (08:45)
[2019-02-15] MEDS: OLMESARTAN 20 MG TAB PO SCH (08:45)
[2019-02-15] MEDS: METOPROLOL SUCCINATE 25 MG TAB XL PO SCH (08:45)
[2019-02-15 09:34] LABS: CREATINE KINASE MB 0.7 ng/mL (0-5.0)
--- NOTE | 2019-02-15 13:49 | NUR ---
patient leaving unit for CT scan of the chest via wheelchair. patient alert and oriented.
--- NOTE | 2019-02-15 14:18 | NUR ---
patient returned to floor via wheelchair, alert and oriented. call beaver within reach and bed in lowest position.
[2019-02-15 14:19] LABS: CREATINE KINASE MB 0.6 ng/mL (0-5.0)
[2019-02-15] MEDS ORDERED: IOPAMIDOL 370 MG/ML 200 ML INFUS..BTL INJ ONE (14:22)
[2019-02-15] MEDS ORDERED: SODIUM CHLORIDE 0.9% 50ML 50 ML ONE (14:22)
--- NOTE | 2019-02-15 15:18 | Diagnostic Imaging Report ---
CT CHEST WITH CONTRAST HISTORY: Chest pain, rule out PE COMPARISON: None available. TECHNIQUE: CT scan of the chest WITH intravenous contrast, using PE protocol. The chest was scanned utilizing a multidetector helical scanner from the lung apex through the level of the adrenal glands. Thin section reconstructions were obtained with special concentration on the pulmonary arteries. IV CONTRAST: 100 cc of Isovue-370. PROTOCOL: PE RADIATION DOSE: Total DLP: 620.21 mGy*cm Dose modulation, iterative reconstruction, and/or weight based adjustment of the mA/kV was utilized to reduce the radiation dose to as low as reasonably achievable. COMPLICATIONS: None DISCUSSION: Lungs: The lungs are well inflated and clear. Vessels: No filling defects are identified within the pulmonary arteries to the segmental levels. Scattered atherosclerotic vascular calcifications, including the coronary arteries. Airways: Thickening of the bronchial dang. Pleura: No pleural effusion or pneumothorax. Heart and mediastinum: Unremarkable Abdomen: Limited evaluation of the upper abdomen. Lymph nodes: No pathologically enlarged lymph node. Bones: No acute bone abnormality. Soft tissues: Unremarkable IMPRESSION: 1. No evidence of a pulmonary embolus. 2. Findings which could be seen in the setting of a nonspecific bronchitis. Signed by: Dr. Rashaad Cannon D.O., M.M.M. on 02/15/2019 3:14 PM
--- NOTE | 2019-02-15 17:45 | Consultation ---
DATE OF CONSULTATION: 02/15/2019 Cardiology Consultation REASON FOR CONSULTATION: Chest pain. HISTORY OF PRESENT ILLNESS: This is a 48-year-old male with history of diabetes mellitus, hypertension, hyperlipidemia, and history of murmur, who presents with complaints of chest pain. The patient reports he has been having chest pressure for the last two days, he describes as a constant 6/10 in severity, shortness of breath, nausea, and diaphoresis. The pain radiates into his abdomen and he notes that it is worse with ambulation with development of nausea and lightheadedness. 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 He denies any recent surgery. He has had lower extremity swelling for the last year, left greater than right, as well as symptoms suggestive of orthopnea and PND for the last 1 to 2 weeks. REVIEW OF SYSTEMS: Negative as per HPI. PAST MEDICAL HISTORY: 1. Diabetes mellitus. 2. Hypertension. 3. Hyperlipidemia. 4. History of murmur. PAST SURGICAL HISTORY: 1. Bilateral knee surgery. 2. Appendectomy. 3. Tonsillectomy. ALLERGIES: PLEASE SEE EMR. MEDICATIONS: Please see medication list. SOCIAL HISTORY: Denies tobacco, alcohol, or illicit drugs. FAMILY HISTORY: Pertinent for father with unspecified heart disease. PHYSICAL EXAMINATION: VITAL SIGNS: Temperature 96.8 degrees, pulse 75, respiratory rate 18, blood pressure 109/59, oxygen saturation 95% on room air. GENERAL: Obese woman, in no acute distress. Awake and alert. HEENT: Normocephalic, atraumatic. Pupils equal. No scleral icterus. NECK: Supple. No thyromegaly or cervical lymphadenopathy. No carotid bruits. LUNGS: Clear to auscultation bilaterally. No wheeze, crackles. CARDIOVASCULAR: Normal rate, regular rhythm. No murmur. Normal S1, S2. ABDOMEN: Soft, nontender. EXTREMITIES: Trace edema. NEUROLOGIC: Nonfocal exam. LABORATORY DATA: Troponin 0.003. Cholesterol 135, triglycerides 236, LDL 51, HDL 37. Chest x-ray, no acute cardiopulmonary abnormalities. EKG normal sinus rhythm. Normal ECG. TELEMETRY: Normal sinus rhythm. IMPRESSION: 1. Chest pain. 2. RV dilation. 3. Hypertension. 4. Hyperlipidemia. 5. Diabetes mellitus. 6. Morbid obesity. RECOMMENDATIONS: Trend cardiac markers to rule out myocardial infarction. The patient's echocardiogram was reviewed. Left ventricular systolic function was normal, however, right ventricular was dilated with preserved systolic function. Given his job description, we will obtain CTA of the chest to rule out PE as well as bilateral lower extremity venous Dopplers. If these are unremarkable plan for nuclear stress test in the morning. Thank you for this consult. We will continue to follow. Lesli Tyler MD ABS/MODL /[id number]
--- NOTE | 2019-02-15 18:53 | NUR ---
report given to aircraft structure mechanic, patient aware of change and in no distress. call beaver within reach, bed in lowest position and spouse at bedside.
--- NOTE | 2019-02-15 19:10 | History and Physical ---
PRIMARY CARE PHYSICIAN: CHIEF COMPLAINT: Chest pressure and pain. HISTORY OF PRESENT ILLNESS: This is a 48-year-old male with multiple risk factors for coronary artery disease including diabetes type 2, obesity, hypertension, family history of early coronary artery disease. He came in with chest pressure-like, lasting a few minutes, some radiation to the shoulder. No nausea or vomiting. The patient came to the hospital for evaluation. The patient is otherwise stable. Cardiac enzymes first set and second set has been negative. The patient is pending for further evaluation. He has also complained of bilateral lower extremity edema for the past few weeks as well. The patient is otherwise stable. No shortness of breath on exertion. PAST MEDICAL HISTORY: Hypertension, diabetes type 2, obesity, lower extremity edema. PAST SURGICAL HISTORY: Tonsillectomy, knee surgery and appendectomy. SOCIAL HISTORY: The patient does not smoke or use alcohol no recreational drugs. FAMILY HISTORY: Diabetes, hypertension, and coronary artery disease. The patient's father has a stent placement in early age of . ALLERGIES: PENICILLIN AND ENALAPRIL. HOME MEDICATION: Zyrtec nasal spray, levothyroxine, metformin, metoprolol succinate, montelukast, olmesartan, Actos, simvastatin, . PHYSICAL EXAMINATION: VITAL SIGNS: Temperature is 98, blood pressure 109/59, pulse rate 75, respiration 18. GENERAL: The patient is not in acute distress, awake. HEENT: Normocephalic, atraumatic. Anicteric. NECK: Supple grossly. PULMONARY: Diminished breath sounds bilaterally without any wheezing or rales. CARDIOVASCULAR: S1 and S2. Regular rate and rhythm. ABDOMEN: Obese, otherwise unremarkable. EXTREMITIES: 1+ edema. NEUROLOGIC: No gross focal deficit. LABORATORY DATA: Sodium is 130, potassium 3.8, chloride 105, bicarb 22, BUN 16, creatinine 1.1, glucose is 92, AST 44, ALT 58. Cardiac enzymes negative x2 sets. LDL is 61, HDL is 37, and total cholesterol 135, triglycerides 236. Urinalysis 3+ glucose. IMAGING DATA: Chest x-rays, no congestion. IMPRESSION: 1. Bilateral lower extremity edema, most likely from the diabetic medication Actos, but also from other etiology pending further workup. 2. Chest pressure and pain. Workup is still pending. Check echocardiogram, EKG, lab work. 3. Multiple chronic baseline problems including cardiac risk factor, diabetes, hypertension, obesity, family history, and male. PLAN: Cardiac workup. Echocardiogram. Repeated lab work. Stop the Actos. Insulin sliding scale coverage. Other home medication. We will monitor the patient closely and we will follow up with Cardiology consultation with Dr. Lesli Tyler. MD NOHEMI Maguire/MODL /[id number]
[2019-02-15] MEDS: MONTELUKAST SODIUM 10 MG TAB PO SCH (20:48)
[2019-02-16] VITALS (8 sets, daily range): BP systolic 106–128; BP diastolic 56–81
[2019-02-16] MEDS: LEVOTHYROXINE SODIUM 88 MCG TAB PO SCH (06:00)
[2019-02-16] MEDS: INSULIN REGULAR, HUMAN 100 UNIT/1 ML 3ML VIAL SQ SCH ×4 (07:30→20:47)
[2019-02-16] MEDS: SIMVASTATIN 20 MG TAB PO SCH (08:59)
[2019-02-16] MEDS: METOPROLOL SUCCINATE 25 MG TAB XL PO SCH (08:59)
[2019-02-16] MEDS: LORATADINE 10 MG TAB PO SCH (09:00)
[2019-02-16] MEDS: OLMESARTAN 20 MG TAB PO SCH (09:00)
[2019-02-16] MEDS: ASPIRIN 81 MG ENTERIC COATED PO SCH (09:00)
[2019-02-16] MEDS: FLUTICASONE PROPIONATE NASAL SPRAY NS SCH (11:01)
--- NOTE | 2019-02-16 12:35 | Progress Note ---
DATE: 02/16/2019 Cardiology Progress Note SUBJECTIVE: The patient reports he had episode of chest pain last night. He denies any shortness of breath. OBJECTIVE: VITAL SIGNS: Temperature 98.4 degrees, pulse 78, respiratory rate 21, blood pressure 119/65, and oxygen saturation 94% on room air. GENERAL: Awake, alert, obese man, in no acute distress. LUNGS: Clear to auscultation bilaterally. No wheezes or crackles. CARDIOVASCULAR: Normal rate, regular rhythm. No murmur. Normal S1, S2. ABDOMEN: Soft, nontender. EXTREMITIES: Trace edema. CARDIAC MEDICATIONS: Simvastatin 20 mg p.o. at bedtime, metoprolol succinate 25 mg p.o. daily, Olmesartan 20 mg p.o. daily, levothyroxine 88 mcg p.o. daily, and aspirin 81 mg p.o. daily. LABORATORY DATA: WBC 7.81, hemoglobin 16, hematocrit 47.5, and platelets 282. TSH 5.449. TELEMETRY: Normal sinus rhythm. IMPRESSION: 1. Chest pain. 2. RV dilation. 3. Hypertension. 4. Hyperlipidemia. 5. Diabetes mellitus. 6. Morbid obesity. RECOMMENDATIONS: No evidence of myocardial infarction with serial cardiac biomarkers. Echocardiogram demonstrated normal LV systolic function, but right ventricle was dilated with preserved systolic function. CT chest was without evidence of pulmonary embolus. We will proceed with exercise nuclear stress test to evaluate for ischemia given his multiple risk factors. Discussed evaluation for sleep apnea given his RV dilation. Further recommendations pending test results. Thank you for this consult. We will continue to follow. Lesli Tyler MD ABS/MODL /[id number]
--- NOTE | 2019-02-16 19:00 | NUR ---
received report from day nurse. patient is resting comfortably in bed. bed is in lowest position and call beaver is within reach. will continue to monitor patient.
--- NOTE | 2019-02-16 20:00 | NUR ---
Consulted district administrator called and said patient is clear to go home from a cardiovascular standpoint.
[2019-02-16] MEDS: MONTELUKAST SODIUM 10 MG TAB PO SCH (20:47)
--- NOTE | 2019-02-16 22:38 | Myoview Stress Test ---
DATE OF STUDY: 02/16/2019 11:12:00 Stress Test - Treadmill ONLY PROCEDURE TITLE: Rest/stress single isotope SPECT imaging with exercise stress and gated SPECT imaging. INDICATION: Chest pain. PROCEDURE: The patient performed treadmill exercise using a Jem protocol exercising for 7 minutes 51 seconds to stage III and completing estimated workload of 10.1 metabolic equivalents (METS). The test was terminated due to target heart rate achieved. The heart rate was 83 beats per minute at rest, increased to 157 beats per minute at peak exercise, which was 72% of the maximum predicted heart rate. The rest blood pressure was 115/67, increased to 229/61 mmHg, which is a hypertensive response. Other than fatigue during the procedure, the resting electrocardiogram demonstrated normal sinus rhythm. There were no ST-segment changes suggestive of myocardial ischemia. Myocardial perfusion imaging was performed at rest following the injection of 10.3 mCi of tetrofosmin. At peak exercise, the patient was injected with 33 mCi of tetrofosmin and exercise was continued for 1 minute. Gated post-stress tomographic imaging was performed. FINDINGS: The overall quality of the study is good. Left ventricular cavity is noted to be of normal size on the rest and stress studies. SPECT images demonstrate homogeneous tracer distribution throughout the myocardium. Gated SPECT imaging reveals normal myocardial thickening and wall motion. The left ventricular ejection fraction was calculated to be 65%. IMPRESSION: Normal ECG and clinical exercise treadmill stress test. Abnormal hemodynamic exercise treadmill stress test is due to hypertensive response to exercise. Myocardial perfusion imaging is normal. Overall, left ventricular systolic function was normal without regional wall motion abnormalities. Lesli Tyler MD ABS/MODL /[id number]
[2019-02-17] VITALS: BP 115/60
[2019-02-17 04:56] VITALS: BP 123/70
[2019-02-17] MEDS: LEVOTHYROXINE SODIUM 88 MCG TAB PO SCH (05:37)
--- NOTE | 2019-02-17 07:06 | NUR ---
Report given to day nurse. patient is resting comfortably in the bed. bed is in lowest position and call beaver is within reach.
[2019-02-17] MEDS: INSULIN REGULAR, HUMAN 100 UNIT/1 ML 3ML VIAL SQ SCH (07:30)
[2019-02-17 07:46] VITALS: BP_SYST 120
[2019-02-17] MEDS ORDERED: ONDANSETRON HCL 4 MG ORAL DISINTEGRATING TAB PO PRN (09:00)
[2019-02-17 11:20] VITALS: BP 125/80
--- NOTE | 2019-02-17 11:42 | Progress Note ---
DATE: 02/17/2019 Cardiology Progress Note SUBJECTIVE: The patient denies chest pain or shortness of breath. OBJECTIVE: VITAL SIGNS: Temperature 98.6 degrees, pulse 73, respiratory rate 20, blood pressure 123/70, oxygen saturation 95%. GENERAL: Obese gentleman, in no acute distress, awake and alert. LUNGS: Clear to auscultation bilaterally. No wheezes or crackles. CARDIOVASCULAR: Normal rate, regular rhythm. No murmur. Normal S1, S2. ABDOMEN: Soft, nontender. EXTREMITIES: Trace edema. CARDIAC MEDICATIONS: Levothyroxine 88 mcg p.o. daily, metoprolol succinate 25 mg p.o. daily, aspirin 81 mg p.o. daily, simvastatin 20 mg p.o. at bedtime. LABORATORY DATA: None today. TELEMETRY: Normal sinus rhythm. IMPRESSION: 1. Chest pain. 2. Right ventricular dilation. 3. Hypertension. 4. Hyperlipidemia. 5. Diabetes mellitus. 6. Morbid obesity. RECOMMENDATIONS: No evidence of myocardial infarction was noted on serial cardiac biomarkers. Echocardiogram demonstrated normal LV systolic function, but right ventricle was dilated with preserved systolic function. CT chest was without evidence of pulmonary embolus. An exercise nuclear stress test demonstrated normal perfusion. I recommended to the patient sleep study to evaluate for sleep apnea given his RV dilation and the patient was agreeable. Please have the patient follow up with us in the office in two weeks for initiation of further antihypertensive therapy. Thank you for this consult. We will continue to follow. Lesli Tyler MD ABS/MODL /[id number]
[2019-02-17] MEDS ORDERED: SIMVASTATIN 20 MG TAB PO SCH (21:00)
--- NOTE | 2019-02-18 06:07 | Discharge Summary ---
PRIMARY CARE PHYSICIAN: Dr. Bernardo Jimenez. COLLATERAL CLERK: Dr. Lesli Tyler. FINAL DIAGNOSES: 1. Atypical chest pain with a negative cardiac stress test. 2. Bilateral lower extremity edema, most likely secondary to Actos. The patient had left ventricular hypertrophy with trace tricuspid regurgitation with the ejection fraction of 60%. The patient does have dilated atrium. SUMMARY: This is a [id number]-male, who came in with bilateral lower extremity edema. The patient does have diabetes, hypertension, and dyslipidemia. He is obese. The patient did not have any shortness of breath, although he complained of some vague chest pressure like. He had a nuclear stress test that was negative. Cardiac enzymes negative as well. Workup showed that the patient was taking Actos for his diabetes at home and has been discontinued. The patient is otherwise stable. He is not having any further chest pressure. Lower extremity venous Doppler was negative. Echocardiogram showed ejection fraction of 60% with the left ventricular hypertrophy and dilated ventricle and atrium. The patient's condition was elaborated by Dr. Tyler and discussed with the patient at length. The patient is stable otherwise. He will go home today. Resume home medications except for the Actos. He will follow up with Dr. Tyler next week and his primary care physician, Dr. Bernardo Jimenez next week as well for adjustment of his medication. MD NOHEMI Maguire/MODL /[id number]
== END 2019-02-17 11:48 | disposition home or self-care (01) ==
LOC: ER 17:34 → ERHOLD 20:08 → IMCU 20:50
PROVIDERS: ADMIT Internal Medicine; ATTEND Internal Medicine
DX: R07.89 Other chest pain (principal); E11.9 Type 2 diabetes mellitus without complications; Z83.3 Family history of diabetes mellitus; Z82.49 Family history of ischemic heart disease and other diseases of the circulatory system; E03.9 Hypothyroidism, unspecified; E78.5 Hyperlipidemia, unspecified; E78.00 Pure hypercholesterolemia, unspecified; Z88.0 Allergy status to penicillin; Z88.8 Allergy status to other drugs, medicaments and biological substances; E66.01 Morbid (severe) obesity due to excess calories; Z68.41 Body mass index [BMI] 40.0-44.9, adult; I07.9 Rheumatic tricuspid valve disease, unspecified; Z79.84 Long term (current) use of oral hypoglycemic drugs
CPT/HCPCS: 36415 ×3; 71045; 71260; 78452; 80053; 80061; 81001; 82550 ×2; 82553 ×2; 82948 ×2; 83036; 83880; 84443; 84484 ×2; 85025; 85610; 85730; 93005; 93017; 93306; 93970; 99284; A9502; G0378 ×4; Q9967

== ENCOUNTER 2021-04-20 23:09 | Emergency (ER) | payer OTHER ==
[~2021-04-20] VITALS: Ht 172.7 cm; Wt 132.4 kg
[~2021-04-20 23:09] MED LIST: BENICAR20 MG PO; FLUTICASONE PRO16 GM; JARDIANCE PO; LEVOCETIRIZINE D5 MG PO; LEVOTHYROXINE88 MCG PO; METFORMIN HCL750 MG PO; METOPROLOL SUCC25 MG PO; MONTELUKAST SOD10 MG PO; PIOGLITAZONE HC30 MG PO; SIMVASTATIN20 MG PO
[2021-04-20] MEDS ORDERED: SODIUM CHLORIDE 0.9% 1000ML 1,000 ML IV ONE ×2 (23:30→23:45)
[2021-04-20 23:45] LABS: BASOPHILS # (AUTO) 0.1 (0.0-0.1); BASOPHILS % 0.7 % (0.0-1.0); EOSINOPHILS # (AUTO) 0.2 (0.0-0.4); EOSINOPHILS % 2.5 % (0.0-6.0); HEMATOCRIT 44.7 % (38.2-49.6); HEMOGLOBIN 15.4 g/dL (14.0-18.0); LYMPHOCYTES # (AUTO) 2.9 (1.0-3.2); LYMPHOCYTES % 36.1 % (18.0-39.1); MEAN CORPUSCULAR HGB CONC 34.5 g/dL (31-35); MEAN CORPUSCULAR VOLUME 90.1 fL (81-99); MONOCYTES # (AUTO) 0.8 (0.2-0.8); MONOCYTES % 9.7 % (4.4-11.3); NEUTROPHILS # (AUTO) 4.1 (2.1-6.9); NEUTROPHILS % 50.3 % (38.7-80.0); PLATELET COUNT 255 x10e3/uL (140-360); RED BLOOD COUNT 4.96 x10e6/uL (4.3-5.7); RED CELL DISTRIBUTION WIDTH 13.2 % (11.7-14.4)
[2021-04-20 23:46] LABS: CLARITY,URINE SL CLOUDY (CLEAR); COLOR,URINE YELLOW (YELLOW); KETONES,URINE NEGATIVE (NEGATIVE); LEUKOCYTE ESTERASE ,URINE NEGATIVE (NEGATIVE); NITRITE,URINE NEGATIVE (NEGATIVE); PROTEIN,URINE DIPSTICK 1+ (NEGATIVE)
[2021-04-20 23:47] LABS: URINE UROBILINOGEN 1 mg/dL (0.2 - 1)
[2021-04-20 23:53] LABS: AMORPHOUS SEDIMENT,URINE FEW (FEW); BACTERIA,URINE FEW /HPF; EPITHELIAL CELLS,URINE FEW /LPF; MUCUS,URINE MODERATE (RARE); RBC,URINE 0-5 /HPF (0-5); WBC,URINE (MAN) 0-5 /HPF (0-5)
[2021-04-21 00:03] LABS: AMYLASE 46 U/L (25-125); LIPASE 32 U/L (8-78)
[2021-04-21 00:06] LABS: ALANINE AMINOTRANSFERASE 60 IU/L (0-55); ALBUMIN 4.1 g/dL (3.5-5.0); ALBUMIN/GLOBULIN RATIO 1.1 (0.8-2.0); ALKALINE PHOSPHATASE 93 IU/L (40-150); ANION GAP 14.5 mmol/L (8-16); BLOOD UREA NITROGEN 21 mg/dL (7-26); BUN/CREATININE RATIO 16 (6-25); CALCIUM 8.8 mg/dL (8.4-10.2); CARBON DIOXIDE 22 mmol/L (22-29); CHLORIDE 104 mmol/L (98-107); CREATINE KINASE 196 IU/L (30-200); CREATININE, SERUM 1.35 mg/dL (0.72-1.25); EST GLOMERULAR FILTRATION RATE 55 ML/MIN (60-); GLUCOSE 210 mg/dL (74-118); POTASSIUM 3.5 mmol/L (3.5-5.1); SODIUM 137 mmol/L (136-145)
== END 2021-04-21 01:10 | disposition home or self-care (01) ==
LOC: ER 23:37
DX: R42 Dizziness and giddiness (principal); R11.0 Nausea; T67.5XXA Heat exhaustion, unspecified, initial encounter; E86.0 Dehydration
CPT/HCPCS: 36415; 70450; 80053; 81001; 82150; 82550; 82553; 83690; 84484; 85025; 93005; 99284; J7030

== ENCOUNTER 2025-04-23 08:09 | Emergency (ER) | payer SELFPAY ==
[~2025-04-23] VITALS: Ht 170.2 cm; Wt 90.7 kg
[~2025-04-23 08:09] MED LIST changes: +GLIPIZIDE10 MG PO; +JARDIANCE25 MG PO; +KETOROLAC TROME10 MG PO; +METFORMIN HCL1000 MG PO; +METRONIDAZOLE500 MG PO; +PREDNISONE20 MG PO; +SIMVASTATIN40 MG PO
[2025-04-23 08:36] VITALS: TEMP 98
[2025-04-23 08:39] LABS: BASOPHILS % 0.4 % (0.0-1.0); EOSINOPHILS # (AUTO) 0.2 (0.0-0.4); HEMATOCRIT 40.8 % (38.2-49.6); LYMPHOCYTES # (AUTO) 2.2 (1.0-3.2); LYMPHOCYTES % 29.8 % (18.0-39.1); MEAN CORPUSCULAR HEMOGLOBIN 32.3 pg (28-32); MEAN CORPUSCULAR HGB CONC 34.3 g/dL (31-35); MONOCYTES # (AUTO) 0.8 (0.2-0.8); MONOCYTES % 11.1 % (4.4-11.3); NEUTROPHILS # (AUTO) 4.2 (2.1-6.9); NEUTROPHILS % 56.3 % (38.7-80.0); PLATELET COUNT 280 x10e3/uL (140-360); RED BLOOD COUNT 4.34 x10e6/uL (4.3-5.7); RED CELL DISTRIBUTION WIDTH 13.2 % (11.7-14.4); WHITE BLOOD COUNT 7.51 x10e3/uL (4.8-10.8)
[2025-04-23 08:54] LABS: ALBUMIN 3.8 g/dL (3.5-5.0); ALBUMIN/GLOBULIN RATIO 1.2 (0.8-2.0); ANION GAP 14.8 mmol/L (8-16); BILIRUBIN,TOTAL 0.5 mg/dL (0.2-1.2); CREATININE, SERUM 1.1 mg/dL (0.72-1.25); POTASSIUM 3.8 mmol/L (3.5-5.1); TOTAL PROTEIN 7.1 g/dL (6.5-8.1)
[2025-04-23 09:00] LABS: TROPONIN I 0.01 ng/mL (0-0.300)
[2025-04-23] MEDS ORDERED: GLIPIZIDE10 MG PO (09:28)
[2025-04-23] MEDS ORDERED: LEVOTHYROXINE88 MCG PO (09:28)
[2025-04-23] MEDS ORDERED: METOPROLOL SUCC25 MG PO (09:28)
[2025-04-23] MEDS: KETOROLAC TROMETHAMINE 30 MG/ML VIAL IV STA (09:32)
[2025-04-23 10:10] VITALS: PULSE 86; RESP 18; O2SAT 97
[2025-04-23] MEDS ORDERED: ACTOS15 MG PO ×2 (10:13→10:18)
== END 2025-04-23 10:21 | disposition home or self-care (01) ==
LOC: ER 08:16
DX: R07.89 Other chest pain (principal); I10 Essential (primary) hypertension; E11.9 Type 2 diabetes mellitus without complications; E78.5 Hyperlipidemia, unspecified; E03.9 Hypothyroidism, unspecified; E78.00 Pure hypercholesterolemia, unspecified; R94.31 Abnormal electrocardiogram [ECG] [EKG]
CPT/HCPCS: 36415; 71045; 80053; 83690; 84484; 85025; 93005; 99284; J1885

== ENCOUNTER 2025-06-23 02:41 | Emergency (ER) | payer BC, MEDICARE ==
[~2025-06-23] VITALS: Ht 170.2 cm; Wt 90.7 kg
[~2025-06-23 02:41] MED LIST changes: +ACTOS15 MG PO
[2025-06-23 02:50] VITALS: RESP 20; TEMP 98.2
[2025-06-23] MEDS: SODIUM CHLORIDE 0.9% 1000ML 1,000 ML IV STA (03:05)
[2025-06-23] MEDS: ONDANSETRON HCL INJ 2MG/ML 2ML 2 MG/ML VIAL IV STA (03:05)
[2025-06-23 03:12] LABS: BASOPHILS % 0.5 % (0.0-1.0); EOSINOPHILS % 2.2 % (0.0-6.0); LYMPHOCYTES % 32.9 % (18.0-39.1); MONOCYTES % 12.1 % (4.4-11.3); NEUTROPHILS % 51.8 % (38.7-80.0); RED CELL DISTRIBUTION WIDTH 13.1 % (11.7-14.4)
[2025-06-23 03:32] LABS: EST GLOMERULAR FILTRATION RATE 92.0 ML/MIN (>=60)
[2025-06-23] MEDS: KETOROLAC TROMETHAMINE 30 MG/ML VIAL IV STA (03:50)
[2025-06-23 03:55] LABS: EPITHELIAL CELLS,URINE FEW /LPF; LEUKOCYTE ESTERASE ,URINE NEGATIVE (NEGATIVE); PROTEIN,URINE DIPSTICK NEGATIVE (NEGATIVE); URINE UROBILINOGEN 0.2 mg/dL (0.2 - 1); WBC,URINE (MAN) 0-5 /HPF (0-5)
[2025-06-23 05:00] VITALS: PULSE 82
[2025-06-23 05:36] VITALS: BP 155/87; O2SAT 100
[2025-06-23] MEDS ORDERED: IOPAMIDOL 370 MG/ML 100 ML INFUS..BTL INJ ONE (07:23)
== END 2025-06-23 05:43 | disposition home or self-care (01) ==
LOC: ER 02:49
DX: R10.31 Right lower quadrant pain (principal); R11.2 Nausea with vomiting, unspecified; I10 Essential (primary) hypertension; E11.65 Type 2 diabetes mellitus with hyperglycemia; E78.5 Hyperlipidemia, unspecified; E78.00 Pure hypercholesterolemia, unspecified; R94.31 Abnormal electrocardiogram [ECG] [EKG]; Z95.5 Presence of coronary angioplasty implant and graft
CPT/HCPCS: 36415; 74177; 80053; 81001; 82550; 83690; 84484; 85025; 93005; 99284; J1885; J2405; J7030; Q9967